=== PATIENT | male | born 1940 | race Caucasian/White ===

== ENCOUNTER 2018-03-26 10:26 | Emergency (ER) | payer OTHER ==
[2018-03-26] MEDS ORDERED: NOREPINEPHRINE 8 MG/250ML KIT 250 ML IV ONE (10:46)
[2018-03-26] MEDS ORDERED: EPINEPHrine HCL 1 MG/10 ML SYRG ONE (10:46)
[2018-03-26 10:49] VITALS: BP 80/29
[2018-03-26] MEDS ORDERED: AMIODARONE HCL 900 MG in DEXTROSE 500 ML IV SCH ×2 (10:58→16:58)
== END 2018-03-26 16:10 | disposition expired ==
LOC: EDBD 10:26 → EDSEX 10:26 → ER 10:26
DX: I46.9 Cardiac arrest, cause unspecified (principal); Z86.73 Personal history of transient ischemic attack (TIA), and cerebral infarction without residual deficits; E78.5 Hyperlipidemia, unspecified
CPT/HCPCS: 31500; 36600; 82805; 92950; 93005; 94761; 99285; J0171; J0282; J7060